=== PATIENT | female | born 1960 | race Caucasian/White ===

== ENCOUNTER 2016-06-24 13:05 | Observation (INO) | payer BC, OTHER ==
[~2016-06-24] VITALS: Ht 152.4 cm; Wt 46.8 kg
[2016-06-24] MEDS ORDERED: NITROGLYCERIN 2% 1 GM OINT PKT TD STA (14:40)
[2016-06-24] MEDS ORDERED: ASPIRIN 325 MG TAB PO STA (14:40)
[2016-06-24] MEDS ORDERED: AMLO5TAB4 PO (14:42)
[2016-06-24] MEDS ORDERED: PROM6.2514 PO (14:44)
--- NOTE | 2016-06-24 15:00 | RADRPT ---
PROCEDURE: XR Chest. CLINICAL INDICATION: Chest pain. TECHNIQUE: Single frontal view. COMPARISON: None. FINDINGS: The lungs are clear. The heart size is normal. There is no pleural effusion. There is no pneumothorax. IMPRESSION: 1. Normal chest radiograph. RPTAT: QQ .Rodney Kirby MD, Date Time Electronically viewed and signed by .Rodney Kirby MD, on 06/24/2016 15:00 .R/
[2016-06-24 15:03] LABS: ADD SCAN DIFF NO
[2016-06-24 15:04] LABS: BASOPHILS % 0.2 % (0.0-2.0); EOSINOPHILS # 0.1 10^3/ul (0.0-0.5); EOSINOPHILS % 0.8 % (0.0-7.0); HEMATOCRIT 46.1 % (37.0-47.0); HEMOGLOBIN 15.2 g/dl (12.0-16.0); LYMPHOCYTES # 1.7 10^3/ul (0.8-2.9); LYMPHOCYTES % 26.8 % (15.0-51.0); MEAN CORPUSCULAR HEMOGLOBIN 29.1 pg (29.0-33.0); MEAN CORPUSCULAR VOLUME 88.1 fl (82.0-101.0); MONOCYTE # 0.3 10^3/ul (0.3-0.9); MONOCYTES % 4.9 % (0.0-11.0); NEUTROPHIL # 4.1 10^3/ul (1.6-7.5); PLATELET COUNT 333 10^3/UL (140-415); RED BLOOD COUNT 5.23 10^6/ul (4.20-5.40); RED CELL DISTRIBUTION WIDTH 11.9 % (11.5-14.5); WHITE BLOOD COUNT 6.2 10^3/ul (4.8-10.8)
--- NOTE | 2016-06-24 15:29 | ERA ---
ER Documentation Chief Complaint Date/Time DATE: 06/24/16 TIME: 15:27 Chief Complaint CP, STARTED THIS AM HPI This is a 55-year-old female with a history of uncontrolled hypertension and a family history of hypertension as well complained of substernal chest pain at the left mid sternum described as pressure and sharp onset about 930 this morning and lasted 2-1/2-3 hours. The pain radiated down the left arm patient was slightly short of breath and felt cold and clammy. She also complained of feeling generalized weakness. At this time the patient has no pain. ROS All systems reviewed and are negative except as per history of present illness. Medications Home Meds Reported Medications Promethazine Hcl* (Promethazine Hcl* Syrup) 6.25 Mg/5 Ml Syrup, 6.25 MG PO Q6H Y for COUGH, ML 06/24/16 Amlodipine Besylate* (Norvasc*) 5 Mg Tablet, 5 MG PO DAILY, TAB 06/24/16 Allergies Allergies: Coded Allergies: Penicillins (Verified Allergy, Unknown, 06/24/16) sulfamethoxazole (Verified Allergy, Unknown, 06/24/16) trimethoprim (Verified Allergy, Unknown, 06/24/16) PMhx/Soc Medical and Surgical Hx: pt denies Surgical Hx History of Surgery: No Hx Cardiac Disorders: Yes (HTN) Hx Alcohol Use: No Hx Substance Use: No Hx Tobacco Use: No Smoking Status: Never smoker FmHx Family History: No coronary disease Physical Exam Vitals Vital Signs Date Time Temp Pulse Resp B/P Pulse Ox O2 Delivery O2 Flow Rate FiO2 06/24/16 13:13 98.1 101 18 194/98 99 Physical Exam Const: Well-developed, well-nourished Head: Atraumatic, normocephalic Eyes: Normal Conjunctiva, PERRLA, EOMI, normal sclera, no nystagmus ENT: Normal External Ears, Nose and Mouth, moist mucus membranes. Neck: Full range of motion. No meningismus, no lymphadenopathy. Resp: Clear to auscultation bilaterally, no wheezing, rhonchi, rales Cardio: Regular rate and rhythm, no murmurs, S1 S2 present Abd: Soft, non tender x 4, non distended. Normal bowel sounds, no guarding or rebound, no pulsitile abdominal masses or bruits Skin: No petechiae or rashes, no ecchymosis , no maculopapular rash Back: No midline or flank tenderness Ext: No cyanosis, or edema, FROM x 4, normal inspection, neurovascularly intact x 4 Neur: Awake and alert, STR 5/5 x 4, sensation intact x 4, no focal findings, cerebellum intact Psych: Normal Mood and Affect Result Diagram: 06/24/16 1450 Results 24 hrs Laboratory Tests Test 06/24/16 14:50 Basophils # 0.010^3/ul Basophils % 0.2% Eosinophils # 0.110^3/ul Eosinophils % 0.8% Hematocrit 46.1% Hemoglobin 15.2g/dl Lymphocytes # 1.710^3/ul Lymphocytes % 26.8% Mean Corpuscular Hemoglobin 29.1pg Mean Corpuscular Hemoglobin Concent 33.0g/dl Mean Corpuscular Volume 88.1fl Mean Platelet Volume 9.0fl Monocytes # 0.310^3/ul Monocytes % 4.9% Neutrophils # 4.110^3/ul Neutrophils % 67.0% Nucleated Red Blood Cells # 0.010^3/ul Nucleated Red Blood Cells % 0.0/100WBC Platelet Count 24580^3/UL Red Blood Count 5.2310^6/ul Red Cell Distribution Width 11.9% White Blood Count 6.210^3/ul Current Medications Medications (Trade) Dose Ordered Sig/Reinaldo Route PRN Reason Start Time Stop Time Status Last Admin Dose Admin Aspirin (Aspirin) 325 mg ONCE STAT PO 06/24/16 14:40 06/24/16 14:43 DC 06/24/16 14:48 Nitroglycerin (Nitroglycerin 2% Oint) 1 inch ONCE STAT TD 06/24/16 14:40 06/24/16 14:43 DC 06/24/16 14:48 Procedures/MDM PROCEDURE: XR Chest. CLINICAL INDICATION: Chest pain. TECHNIQUE: Single frontal view. COMPARISON: None. FINDINGS: The lungs are clear. The heart size is normal. There is no pleural effusion. There is no pneumothorax. IMPRESSION: 1. Normal chest radiograph. RPTAT: QQ .Rodney Kirby MD, MD Date Time Electronically viewed and signed by .Rodney Kirby MD, MD on 06/24/2016 15:00 .R/ CC: JASE JEFF DO EKG: Rate/Rhythm: Normal Sinus Rhythm,NL intervals QRS, ST, QT: NORMAL AL, QRS, QT] Impression: NORMAL EKG Patient's symptoms are concerning for cardiac cause will require inpatient workup and continuous monitoring. Further w/u for ischemia, arrhythmia, PE or dissection will be deferred to the inpatient team. Accepting Care Team: Current data and ongoing care discussed. Time: Time of admission Primary Provider: [XOXOXO] Consulting: [XOXOXO] Outstanding Data: none Departure Diagnosis: Primary Impression: Chest pain Qualified Code: R07.9 - Chest pain, unspecified type Condition: Stable JASE JEFF DO Jun 24, 2016 15:29
[2016-06-24 15:47] LABS: CHLORIDE 100 mmol/L (97-110)
[2016-06-24 15:48] LABS: POTASSIUM 3.8 mmol/L (3.5-5.1); SODIUM 144 mmol/L (135-144)
[2016-06-24 15:50] LABS: ANION GAP 22 (8-16); CARBON DIOXIDE 26 mmol/L (21-31); CREATININE 0.65 mg/dl (0.44-1.00)
[2016-06-24 15:51] LABS: BLOOD UREA NITROGEN 11 mg/dl (7-20); CALCIUM 9.4 mg/dl (8.4-10.2); GLUCOSE 93 mg/dl (70-220)
[2016-06-24] MEDS ORDERED: ONDANSETRON 4 MG INJ IV PRN (16:00)
[2016-06-24] MEDS ORDERED: ACETAMINOPHEN 325 MG TAB PO PRN ×2 (16:00→17:00)
[2016-06-24 16:20] LABS: TROPONIN-I < 0.012 ng/ml (0.00-0.12)
[2016-06-24] MEDS ORDERED: NITROGLYCERIN (SL) 0.4 MG TAB SL PRN (17:00)
[2016-06-24] MEDS ORDERED: morphine 2 MG INJ IV PRN (17:00)
[2016-06-24] MEDS: AL HYDROX/MG HYDROX/SIMETH 30 ML CUP PO SCH ×2 (17:16→21:44)
--- NOTE | 2016-06-24 17:27 | HP ---
DATE OF ADMISSION: 06/24/2016 REASON FOR ADMISSION: Chest pain. HISTORY OF PRESENT ILLNESS: This is a 55-year-old lady with no prior cardiac history. Woke up this m orning with left-sided chest pain, sharp, stabbing in nature with no radiation, did have mild associ ated shortness of breath at that time. She was able to take her children to school; however, pain w as largely persistent until 10:00 a.m. when she presented to the emergency room and pain had resolve d spontaneously. She has no prior cardiac history, recently diagnosed with possible hypertension, s tarted on amlodipine by her primary care physician several days ago. She is a nonsmoker. No family history of cardiac disease. PAST MEDICAL HISTORY: Hypertension. ALLERGIES: PENICILLIN, SULFAMETHOXAZOLE AND BACTRIM. SOCIAL HISTORY: She has 2 children, , is independent in ADLs, nonsmoker, no alcohol, no hist ory of drug use. FAMILY HISTORY: Noncontributory. PHYSICAL EXAMINATION: GENERAL: A well-developed, well-nourished lady, awake, alert, oriented, talking in full an d complete sentences. VITAL SIGNS: Currently afebrile. Pulse is 100, blood pressure initially 190/80, now 140/100, O2 sa turation 96% on room air. NECK: Supple. No JVD or lymphadenopathy. CARDIAC: S1, S2, no added sounds or murmurs. CHEST: Chest clear to auscultation bilaterally. ABDOMEN: Soft, nontender. No guarding or rebound. EXTREMITIES: No cyanosis, clubbing or edema. NEUROLOGIC: Grossly intact. No focal deficits. LABORATORY DATA: White count 6.2, hemoglobin 15.2, platelets of 333, BUN 11, creatinine 0.65. Init ial troponin was negative. EKG shows sinus rhythm, no acute ischemic changes. DIAGNOSTIC DATA: Chest x-ray was reviewed, shows no infiltrates or effusions. IMPRESSION AND PLAN: 1. Chest pain in a pleasant 55-year-old lady unlikely to be cardiac. However, persistent pain for 4 hours. 2. Hypertension and possible anxiety component given elevated blood pressure in the emergency room earlier on admission. PLAN: Cardiology consult Dr. Chua currently to evaluate for cardiology. Patient will need seri al troponins, possible noninvasive stress test if indicated. The patient should follow up with her primary care physician for blood pressure management for evaluation and management of her hypertensi on. Dictated By: JAVI KOENIG/ELIZA Conf#: [id number] DID#: [id number]
--- NOTE | 2016-06-24 18:46 | CONS ---
Date/Time of Note Date/Time of Note DATE: 06/24/16 TIME: 18:38 Assessment/Plan Assessment/Plan Chief Complaint/Hosp Course Chest pain: The patient has atypical symptoms and just recently diagnosed HTN as a risk factor, but she does have inferolateral ST depressions on her presenting EKG which are concerning. As she is currently asymptomatic, will trend one more troponin. If troponin is negative will have stress MPI tomorrow am. If trends up, recurrence of pain, or evolving EKG changes, will anticoagulate and evaluate for cardiac cath. HTN: recently diagnosed. On admission was 194/98 but resolved without meds so unclear if really that high. If it was that high, may explain her chest pain. -ASA, statin, metoprolol -trend trop. See above discussion for decision making -stress MPI in am if trops negative Problems: Consultation Date/Type/Reason Admit Date/Time Date of Consultation: Jun 24, 2016 Type of Consultation: Cardiology Reason for Consultation Chest pain Referring Provider: JAVI WEBSTER MD, [facility] Hx of Present Illness 55 yo F with a recent diagnosis of HTN, who presented with chest pain. She notes that she woke up around 6 am with sharp chest pain radiating to her left arm with numbness of her left hand. She had SOB associated with this. As the pain did not go away, she decided to come in for evaluation. She has never had this occur and she is usually active and without symptoms. She denies a family h /o CAD and she does not smoke or drink. She is currently chest pain free but has a headache (NTG patch in place). per HPI Past Medical History HTN Social History Smoking Status: Never smoker Exam/Review of Systems Vital Signs Vitals Vital Signs Date Time Temp Pulse Resp B/P Pulse Ox O2 Delivery O2 Flow Rate FiO2 06/24/16 17:36 97.4 88 16 134/76 100 Room Air Exam Constitutional: alert, oriented Psych: no complaints Head: atraumatic, normocephalic Eyes: nl conjunctiva ENMT: nl external ears & nose Neck: No jvd Respiratory: clear to auscultation, No crackles/rales Cardiovascular: regular rate and rhythm, No edema, No systolic murmur Gastrointestinal: soft Musculoskeletal: nl extremities to inspection Extremities: normal pulses Neurological: nl mental status, nl speech Skin: No rash or lesions Results EKG: sinus tachycardia, inferior and lateral [address] depression (unclear if new or old) Result Diagram: 06/24/16 1450 06/24/16 1450 Results 24 hrs Laboratory Tests Test 06/24/16 14:50 Anion Gap 22 H Basophils # 0.0 Basophils % 0.2 Blood Urea Nitrogen 11 Calcium Level 9.4 Carbon Dioxide Level 26 Chloride Level 100 Creatinine 0.65 Eosinophils # 0.1 Eosinophils % 0.8 Glucose Level 93 Hematocrit 46.1 Hemoglobin 15.2 Lymphocytes # 1.7 Lymphocytes % 26.8 Mean Corpuscular Hemoglobin 29.1 Mean Corpuscular Hemoglobin Concent 33.0 Mean Corpuscular Volume 88.1 Mean Platelet Volume 9.0 Monocytes # 0.3 Monocytes % 4.9 Neutrophils # 4.1 Neutrophils % 67.0 Nucleated Red Blood Cells # 0.0 Nucleated Red Blood Cells % 0.0 Platelet Count 333 Potassium Level 3.8 Red Blood Count 5.23 Red Cell Distribution Width 11.9 Sodium Level 144 Troponin I < 0.012 White Blood Count 6.2 Medications Medications Current Medications Al Hydrox/Mg Hydrox/Simethicone (Mag-Al Plus) 30 ml QID PO Last administered on 06/24/16t 17:16; Admin Dose 30 ML; Start 06/24/16 at 17:00 Enoxaparin Sodium (Lovenox) 55 mg Q12 SC ; Start 06/24/16 at 21:00 Aspirin (Aspirin) 81 mg DAILY PO ; Start 06/26/16 at 09:00 Metoprolol Tartrate (Lopressor) 12.5 mg BID PO ; Start 06/24/16 at 21:00 Nitroglycerin (Nitroglycerin (Sl Tab) 0.4 Mg) 1 tab Q5M PRN SL CHEST PAIN; Start 06/24/16 at 17:00 Morphine Sulfate (morphine) 2 mg Q2H PRN IV PAIN LEVEL 4-6; Start 06/24/16 at 17:00 Acetaminophen (Tylenol Tab) 325 mg Q6H PRN PO PAIN AND OR ELEVATED TEMP; Start 06/24/16 at 17:00 CAMILO CHILDS Jun 24, 2016 18:46
[2016-06-24] MEDS ORDERED: METOPROLOL 25 MG TAB PO SCH (21:00)
[2016-06-24] MEDS: ENOXAPARIN 60 MG/0.6 ML SYG SC SCH (21:47)
[2016-06-24 22:37] VITALS: TEMP 98.5
[2016-06-24 23:45] VITALS: BP 175/108; PULSE 73; RESP 18
[2016-06-25] VITALS (10 sets, daily range): BP systolic 100–142; BP diastolic 60–90; PULSE 59–77; RESP 18–20; Ht 152.4 cm; Wt 46.8 kg
[2016-06-25] MEDS: METOPROLOL 25 MG TAB PO SCH ×2 (00:16→10:48)
[2016-06-25] MEDS ORDERED: NITROGLYCERIN 2% 1 GM OINT PKT TD SCH (00:30)
[2016-06-25] MEDS ORDERED: ENALAPRILAT 1.25 MG INJ IV PRN (00:30)
[2016-06-25] MEDS ORDERED: REGADENOSON 0.4 MG/5 ML SYG ONE (09:14)
--- NOTE | 2016-06-25 10:07 | RADRPT ---
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 Physician: JAVI WEBSTER Quality: Technically Difficult Study Procedures: Transthoracic echocardiogram with complete 2D, M-Mode, and doppler examination. Indications: Chest Pain. 2D/M Mode Doppler Measurement Value Normal Ranges Measurement Value Normal Ranges LVIDd 2D 3.4 3.5 - 5.6 cm AV Peak Desmond 1.1 m/sec LVIDs 2D 2.5 2.1 - 4.1 cm AV Peak PG 5.0 mmHg FS 2D 28.6 % LVOT Peak Desmond 0.8 m/sec LVPWd 2D 1.3 0.6 - 1.1 cm LVOT Peak PG 3.0 mmHg IVSd 2D 1.3 0.6 - 1.1 cm MV E Peak Desmond 0.7 m/sec IVS/LVPW 2D 1.0 MV A Peak Desmond 0.7 m/sec AoR Diam 2D 2.1 2.0 - 3.7 cm MV E/A 0.9 LA/Ao 2D 1 0 - 1 MV Decel Time 218 msec EDV 2D 40.4 cm3 MV E/A 0.9 ESV 2D 14.7 cm3 LA Dimen 2D 2.8 2.3 - 4.0 cm Findings Left Ventricle: Normal left ventricular systolic function. Normal left ventricular cavity size. Mild concentric left ventricular hypertrophy. Ejection fraction is visually estimated at 60 %. Tissue Doppler/Mitral Doppler indices are within normal limits. Right Ventricle: Normal right ventricular size. Normal right ventricular systolic function. Left Atrium: The left atrium is normal in size. Right Atrium: The right atrium is normal in size. Mitral Valve: Mild mitral annular calcification. Trace mitral regurgitation. Aortic Valve: Aortic valve not well visualized. Trace aortic valve regurgitation. Tricuspid Valve: Tricuspid valve not well visualized. Unable to obtain RVSP due to minimal presence of tricuspid regurgitation. There is trace tricuspid regurgitation. Pulmonic Valve: Pulmonic valve not well visualized. There is trace pulmonic regurgitation. Pericardium: Normal pericardium with no significant pericardial effusion. Aorta: Normal aortic root. IVC: Normal size and normal respiratory collapse consistent with normal right atrial pressure. Conclusions 1.Technically difficult study with poor acoustic windows. 2.Normal left ventricular systolic function. Normal left ventricular cavity size. Mild concentric left ventricular hypertrophy. Ejection fraction is visually estimated at 60 %. Tissue Doppler/Mitral Doppler indices are within normal limits. 3.No significant valvular stenosis or regurgitation seen. 4.Unable to obtain RVSP due to minimal presence of tricuspid regurgitation. RA pressure is 3 mmHg. Electronically Signed By: Eliseo Worley 25-Jun-2016 10:07:37 -0800 Patient Name: DARLENE DESIR Study Date: 25-Jun-2016 [id number]
--- NOTE | 2016-06-25 10:39 | OPR ---
Date/Time of Note Date/Time of Note DATE: 06/25/16 TIME: 10:38 Operative Report Free Text/Dictation Nuclear medicine myocardial perfusion imaging: Date: 06/25/2016 Indication: Chest pain After informed consent, the patient was given IV Lexiscan. Pt was monitored for a total of 8 minutes post-infusion without any sings of arrhythmias. Patient had nausea and SOB but no chest pain or significant EKG changes. Please refer to separate note for imaging results. CAMILO CHILDS Jun 25, 2016 10:39
--- NOTE | 2016-06-25 10:40 | CONS ---
Date/Time of Note Date/Time of Note DATE: 06/25/16 TIME: 10:39 Assessment/Plan Assessment/Plan Chief Complaint/Hosp Course Chest pain: The patient has atypical symptoms and just recently diagnosed HTN as a risk factor, but she does have inferolateral ST depressions on her presenting EKG which are concerning. As she is currently asymptomatic. Trops negative and echo normal. Await MPI results HTN: recently diagnosed. On admission was 194/98 but resolved without meds so unclear if really that high. If it was that high, may explain her chest pain. -ASA, statin, metoprolol -d/c if stress MPI normal Problems: Consultation Date/Type/Reason Admit Date/Time Jun 24, 2016 at 15:46 Initial Consult Date 06/24/16 Type of Consultation: Cardiology Referring Provider: JAVI WEBSTER MD, [facility] 24 HR Interval Summary Free Text/Dictation No o/n events. No chest pain. Exam/Review of Systems Vital Signs Vitals Vital Signs Date Time Temp Pulse Resp B/P Pulse Ox O2 Delivery O2 Flow Rate FiO2 06/25/16 08:52 68 06/25/16 07:59 98.5 18 140/88 98 Room Air Intake and Output 06/24/16 06/24/16 06/25/16 15:00 23:00 07:00 Intake Total 240 ml Balance 240 ml Exam Constitutional: alert, oriented Psych: no complaints Neck: No jvd Respiratory: clear to auscultation Cardiovascular: regular rate and rhythm, No edema Gastrointestinal: non-tender, soft Musculoskeletal: nl extremities to inspection Extremities: normal pulses Neurological: nl mental status, nl speech Results Result Diagram: 06/24/16 1450 06/24/16 1450 Results 24 hrs Laboratory Tests Test 06/24/16 14:50 06/24/16 18:05 06/24/16 22:28 06/25/16 00:25 Anion Gap 22 H Basophils # 0.0 Basophils % 0.2 Blood Urea Nitrogen 11 Calcium Level 9.4 Carbon Dioxide Level 26 Chloride Level 100 Creatinine 0.65 Eosinophils # 0.1 Eosinophils % 0.8 Glucose Level 93 Hematocrit 46.1 Hemoglobin 15.2 Lymphocytes # 1.7 Lymphocytes % 26.8 Mean Corpuscular Hemoglobin 29.1 Mean Corpuscular Hemoglobin Concent 33.0 Mean Corpuscular Volume 88.1 Mean Platelet Volume 9.0 Monocytes # 0.3 Monocytes % 4.9 Neutrophils # 4.1 Neutrophils % 67.0 Nucleated Red Blood Cells # 0.0 Nucleated Red Blood Cells % 0.0 Platelet Count 333 Potassium Level 3.8 Red Blood Count 5.23 Red Cell Distribution Width 11.9 Sodium Level 144 Troponin I < 0.012 < 0.012 0.020 0.016 White Blood Count 6.2 Medications Medications Current Medications Al Hydrox/Mg Hydrox/Simethicone (Mag-Al Plus) 30 ml QID PO Last administered on 06/24/16 21:44; Admin Dose 30 ML; Start 06/24/16 at 17:00 Enoxaparin Sodium (Lovenox) 55 mg Q12 SC Last administered on 06/24/16 21:47; Admin Dose 55 MG; Start 06/24/16 at 21:00 Aspirin (Aspirin) 81 mg DAILY PO ; Start 06/26/16 at 09:00 Nitroglycerin (Nitroglycerin (Sl Tab) 0.4 Mg) 1 tab Q5M PRN SL CHEST PAIN; Start 06/24/16 at 17:00 Morphine Sulfate (morphine) 2 mg Q2H PRN IV PAIN LEVEL 4-6; Start 06/24/16 at 17:00 Acetaminophen (Tylenol Tab) 325 mg Q6H PRN PO PAIN AND OR ELEVATED TEMP; Start 06/24/16 at 17:00 Metoprolol Tartrate (Lopressor) 25 mg BID PO Last administered on 06/25/16 00: 16; Admin Dose 25 MG; Start 06/25/16 at 00:30 Enalaprilat (Vasotec Iv) 1.25 mg Q6H PRN IV systolic BP >140; Start 06/25/16 at 00:30 CAMILO CHILDS Jun 25, 2016 10:40
[2016-06-25] MEDS: AL HYDROX/MG HYDROX/SIMETH 30 ML CUP PO SCH ×2 (10:46→13:26)
--- NOTE | 2016-06-25 10:49 | RADRPT ---
PROCEDURE: Nuclear medicine myocardial perfusion scan CLINICAL INDICATION: Chest pain TECHNIQUE: 30.0 mCi of technetium 99m Cardiolite was administered for the stress study. 10.0 mCi of technetium 99m Cardiolite was administered for the resting study. The patient was stressed with 0 .4 mg of Lexiscan. Images were reviewed in the short axis, vertical long axis, and horizontal long axis views. Wall motion was assessed and ejection fraction was calculated as well. Images were revi ewed on a high-resolution PACS workstation. COMPARISON: None available FINDINGS: Left ventricular size is within normal limits. There is moderate soft tissue and bowel attenuation artifact. The stress tomographic images demonstrate a normal pattern of perfusion. The resting yazmin ographic images demonstrate a similar pattern. There is no evidence for reversible ischemia. Wall motion is normal. The ejection fraction is calculated at 62%. IMPRESSION: 1. Negative myocardial perfusion scan. 2. There is no evidence for reversible ischemia. 3. Normal wall motion with normal ejection fraction of 62%. RPTAT: HMJB .Zack Alexandre MD, MD Date Time Electronically viewed and signed by .Zack Alexandre MD, MD on 06/25/2016 10:49 .B/
[2016-06-25] MEDS: ENOXAPARIN 60 MG/0.6 ML SYG SC SCH (10:59)
[2016-06-25] MEDS ORDERED: ASPI81TA3 PO (12:40)
--- NOTE | 2016-06-25 12:40 | PDOCDIS ---
Discharge Instructions DIAGNOSIS Discharge Diagnosis: Noncardiac chest pain; hypertension CONDITION Patient Condition: Good HOME CARE INSTRUCTIONS: Diet Instructions: RegularSpecial Diet: npo ACTIVITY: Activity Restrictions: No Restrictions Do not operate Power Tool FOLLOW UP/APPOINTMENTS Appointments Follow-up with primary care physician in 2 weeks BEATRIS FRANZ MD Jun 25, 2016 12:40
--- NOTE | 2016-06-25 12:42 | DS ---
Date/Time of Note Date/Time of Note DATE: 06/25/16 TIME: 12:41 Discharge Summary Admission/Discharge Info Admit Date/Time Jun 24, 2016 at 15:46 Discharge Date/Time 06/25/2016 Final Diagnosis Noncardiac chest pain; essential hypertension Patient Condition: Good Consults Cardiology Procedures Lexiscan Hx of Present Illness This is a 55-year-old lady with no prior cardiac history. Woke up this morning with left-sided chest pain, sharp, stabbing in nature with no radiation, did have mild associated shortness of breath at that time. She was able to take her children to school; however, pain was largely persistent until 10:00 a.m. when she presented to the emergency room and pain had resolved spontaneously. She has no prior cardiac history, recently diagnosed with possible hypertension , started on amlodipine by her primary care physician several days ago. She is a nonsmoker. No family history of cardiac disease. Hospital Course Chest pain: The patient has atypical symptoms and just recently diagnosed HTN as a risk factor, but she does have inferolateral ST depressions on her presenting EKG which are concerning. As she is currently asymptomatic. Trops negative and echo normal. Await MPI results HTN: recently diagnosed. On admission was 194/98 but resolved without meds so unclear if really that high. If it was that high, may explain her chest pain. -ASA, statin, metoprolol -d/c if stress MPI normal Charming 55-year-old woman. She has had a Lexiscan test that was fully normal. She is now stable for discharge. She has excellent rehabilitation potential she is competent for medical decisions she has no known communicable diseases she is not a hazard to herself or others. Home Meds Reported Medications Promethazine Hcl* (Promethazine Hcl* Syrup) 6.25 Mg/5 Ml Syrup, 6.25 MG PO Q6H Y for COUGH, ML 06/24/16 Amlodipine Besylate* (Norvasc*) 5 Mg Tablet, 5 MG PO DAILY, TAB 06/24/16 Pending Labs Laboratory Tests Test 06/24/16 14:50 06/24/16 18:05 06/24/16 22:28 06/25/16 00:25 Anion Gap 22 (8-16) Basophils # 0.010^3/ul (0.0-0.1) Basophils % 0.2% (0.0-2.0) Blood Urea Nitrogen 11mg/dl (7-20) Calcium Level 9.4mg/dl (8.4-10.2) Carbon Dioxide Level 26mmol/L (21-31) Chloride Level 100mmol/L (97-110) Creatinine 0.65mg/dl (0.44-1.00) Eosinophils # 0.110^3/ul (0.0-0.5) Eosinophils % 0.8% (0.0-7.0) Glucose Level 93mg/dl (70-220) Hematocrit 46.1% (37.0-47.0) Hemoglobin 15.2g/dl (12.0-16.0) Lymphocytes # 1.710^3/ul (0.8-2.9) Lymphocytes % 26.8% (15.0-51.0) Mean Corpuscular Hemoglobin 29.1pg (29.0-33.0) Mean Corpuscular Hemoglobin Concent 33.0g/dl (32.0-37.0) Mean Corpuscular Volume 88.1fl (82.0-101.0) Mean Platelet Volume 9.0fl (7.4-10.4) Monocytes # 0.310^3/ul (0.3-0.9) Monocytes % 4.9% (0.0-11.0) Neutrophils # 4.110^3/ul (1.6-7.5) Neutrophils % 67.0% (39.0-77.0) Nucleated Red Blood Cells # 0.010^3/ul (0.0-0.0) Nucleated Red Blood Cells % 0.0/100WBC (0.0-0.0) Platelet Count 81791^3/UL (140-415) Potassium Level 3.8mmol/L (3.5-5.1) Red Blood Count 5.2310^6/ul (4.20-5.40) Red Cell Distribution Width 11.9% (11.5-14.5) Sodium Level 144mmol/L (135-144) Troponin I < 0.012ng/ml (0.00-0.12) < 0.012ng/ml (0.00-0.12) 0.020ng/ml (0.00-0.12) 0.016ng/ml (0.00-0.12) White Blood Count 6.210^3/ul (4.8-10.8) BEATRIS FRANZ MD Jun 25, 2016 12:42
[2016-06-26] MEDS ORDERED: ASPIRIN 81 MG TAB PO SCH (09:00)
== END 2016-06-25 15:55 | disposition home or self-care (01) ==
LOC: E/R 13:05 → TEL 15:46
PROVIDERS: ADMIT Internal Medicine Pulmonary Disease; ATTEND Internal Medicine Pulmonary Disease
DX: R07.9 Chest pain, unspecified (principal); I10 Essential (primary) hypertension
CPT/HCPCS: 71010; 78452; 80048; 84484; 85025; 93005; 93017; 93306; 96372; A9500; A9505; J1650; J2785; Z7500; Z7610; G0378

== ENCOUNTER 2018-05-08 14:40 | Emergency (ER) | payer BC, OTHER ==
[~2018-05-08] VITALS: Ht 144.8 cm; Wt 48.0 kg
[~2018-05-08 14:40] MED LIST: AMLO5TAB4 PO; ASPI-831 PO; PROM6.2515 PO
[2018-05-08 14:47] VITALS: Ht 144.8 cm; Wt 48.0 kg
[2018-05-08] MEDS ORDERED: ONDANSETRON 4 MG INJ IV STA (17:40)
[2018-05-08] MEDS ORDERED: SOD CHLORIDE 0.9% 1,000 ML IV STA (17:40)
[2018-05-08] MEDS ORDERED: HYDROmorphONE 1 MG/ML SYG IV STA (17:40)
[2018-05-08] MEDS ORDERED: hydrALAzine 20 MG INJ IV ONE (18:00)
[2018-05-08] MEDS ORDERED: LOSA100T15 PO (18:24)
[2018-05-08] MEDS ORDERED: HYDR25TA6 PO (18:25)
[2018-05-08] MEDS ORDERED: KETOROLAC 30 MG INJ IV STA (19:29)
[2018-05-08] MEDS ORDERED: IBUP-1561 PO (19:40)
--- NOTE | 2018-05-08 19:52 | ERD ---
ER Documentation Chief Complaint Chief Complaint FLL LAST WEEK WITH PIEDRA/NECK/SHOULDER PAIN HPI This is a 57-year-old female with a known history of hypertension. The patient indicates that 1 week prior to arrival she had a mechanical slip and fall in the rain. She had gotten out of her car and fell backwards and hit her head onto the cement. She stated there is no loss of consciousness. Since that time she has been complaining of a severe posterior headache. She also complains of shoulder pain and contrary to the triage note she denies any neck pain. She states the pain is located on the back of both of her shoulders but she is able to move her arms, however this does exacerbate her pain. She has no numbness or tingling of her upper or lower extremities. She is right-handed dominant denies any weakness of her upper extremities. The patient states that the headache is persistent. There is no alleviating or exacerbating factors. He has no changes in vision. She feels nauseous but has not experienced any emesis. She went to her primary care physician today for further evaluation. Her blood pressure was elevated with a systolic of greater than 200. She stated she had not taken her antihypertensive medication for the past several days. She denies any chest pain. She denies any abdominal pain. She was told to immediately come to the emergency department to be further evaluated. ROS All systems reviewed and are negative except as per history of present illness. Medications Home Meds Active Scripts Ibuprofen* (Motrin*) 400 Mg Tab, 400 MG PO Q6H PRN for PAIN AND OR ELEVATED TEMP, #30 TAB Prov:MELISSA FERNANDEZ MD 05/08/18 Reported Medications Hydrochlorothiazide* (Hydrochlorothiazide*) 25 Mg Tab, 25 MG PO QAM, #30 TAB 05/08/18 Losartan Potassium* (Losartan Potassium*) 100 Mg Tablet, 100 MG PO QAM, TAB 05/08/18 Discontinued Reported Medications Promethazine Hcl* (Promethazine Hcl* Syrup) 6.25 Mg/5 Ml Syrup, 6.25 MG PO Q6H PRN for COUGH, ML 06/24/16 Amlodipine Besylate* (Norvasc*) 5 Mg Tablet, 5 MG PO DAILY, TAB 06/24/16 Discontinued Scripts Aspirin (Aspirin) 81 Mg Chew, 81 MG PO DAILY for 30 Days, TAB Prov:BEATRIS FRANZ MD 06/25/16 Allergies Allergies: Coded Allergies: Penicillins (Verified Allergy, Unknown, 05/08/18) sulfamethoxazole (Verified Allergy, Unknown, 05/08/18) trimethoprim (Verified Allergy, Unknown, 05/08/18) PMhx/Soc History of Surgery: Yes (right arm rotator cuff surgery, tubal ligation) Anesthesia Reaction: No Hx Neurological Disorder: No Hx Respiratory Disorders: No Hx Cardiac Disorders: No (HYPERTENSION) Hx Psychiatric Problems: No Hx Miscellaneous Medical Probl: No Hx Alcohol Use: No Hx Substance Use: No Hx Tobacco Use: No Smoking Status: Never smoker Physical Exam Vitals Vital Signs Date Temp Pulse Resp B/P (MAP) Pulse Ox O2 O2 Flow FiO2 Time Delivery Rate 05/08/18 18 145/81 99 Room Air 18:23 (102) 05/08/18 18 226/123 99 Room Air 17:50 (157) 05/08/18 220/114 15:27 (149) 05/08/18 97.8 90 18 218/112 99 14:47 (147) Physical Exam Constitutional:Well-developed. Well-nourished. HEENT:Normocephalic. Atraumatic.Pupils were equal round reactive to light. Moist mucous membranes.No tonsillar exudates. No nasal septal hematoma. No hemotympanum. No scalp hematoma. Neck: No nuchal rigidity. No lymphadenopathy. No posterior cervical spine tenderness or step-offs. Respiratory: Not using accessory muscles of respiration.Lungs were clear to auscultation bilaterally. No rhonchi. No rales. No wheezing. Cardiovascular: Regular rate regular rhythm.No murmurs. No rubs were appreciated.S1, S2 normal. Distal pulses are palpable 2+ bilaterally. GI: Abdomen was soft. Nontender. Non Distended. No pulsatile abdominal masses or bruits. No rebound. No guarding. Bowel sounds were present and normal. Muscle skeletal: Full range of motion of both the upper and lower extremities bilaterally.Normal muscle tone.No assymetrical calf tenderness or swelling. Normal light of both humeral heads. No reproducible tenderness over the bilateral upper extremities. Patient was able to abduct both upper extremities past 90 degrees without any difficult he appear Skin: No petechia, no purpura. No lesions on the palms or the soles of the feet. No maculopapular rash. NEURO: Patient was alert, awake, orientated x3.No facial droop. Gait observed and normal with no ataxia.Speech had regular rate and rhythm. No focal n eurological deficits. Result Diagram: 05/08/18174105/08/181741 Results 24 hrs Laboratory Tests Test 05/08/18 17:42 White Blood Count 6.3 10^3/ul Red Blood Count 4.87 10^6/ul Hemoglobin 14.7 g/dl Hematocrit 43.6 % Mean Corpuscular Volume 89.5 fl Mean Corpuscular Hemoglobin 30.2 pg Mean Corpuscular Hemoglobin Concent 33.7 g/dl Red Cell Distribution Width 12.1 % Platelet Count 349 10^3/UL Mean Platelet Volume 8.7 fl Immature Granulocytes % 0.200 % Neutrophils % 60.9 % Lymphocytes % 33.4 % Monocytes % 5.0 % Eosinophils % 0.3 % Basophils % 0.2 % Nucleated Red Blood Cells % 0.0 /100WBC Immature Granulocytes # 0.010 10^3/ul Neutrophils # 3.9 10^3/ul Lymphocytes # 2.1 10^3/ul Monocytes # 0.3 10^3/ul Eosinophils # 0.0 10^3/ul Basophils # 0.0 10^3/ul Nucleated Red Blood Cells # 0.0 10^3/ul Prothrombin Time 12.3 Sec Prothrombin Time Ratio 1.0 INR International Normalized Ratio 0.90 Activated Partial Thromboplast Time 31.1 Sec Sodium Level 142 mmol/L Potassium Level 3.5 mmol/L Chloride Level 102 mmol/L Carbon Dioxide Level 27 mmol/L Anion Gap 13 Blood Urea Nitrogen 12 mg/dl Creatinine 0.65 mg/dl Est Glomerular Filtrat Rate mL/min > 60 mL/min Glucose Level 96 mg/dl Calcium Level 10.1 mg/dl Total Bilirubin 0.1 mg/dl Direct Bilirubin 0.00 mg/dl Indirect Bilirubin 0.1 mg/dl Aspartate Amino Transf (AST/SGOT) 27 IU/L Alanine Aminotransferase (ALT/SGPT) 19 IU/L Alkaline Phosphatase 88 IU/L Troponin I < 0.012 ng/ml Total Protein 9.1 g/dl Albumin 5.4 g/dl Globulin 3.70 g/dl Albumin/Globulin Ratio 1.45 Amylase Level 117 U/L Lipase 63 U/L Current Medications Medications Dose Sig/Reinaldo Start Time Status Last (Trade) Ordered Route PRN Stop Time Admin Dose Reason Admin Sodium 1,000 ml @ Q1H STAT 05/08/18 DC 05/08/18 Chloride 1,000 mls/hr IV 17:40 17:51 05/08/18 18:39 Ondansetron 4 mg ONCE STAT 05/08/18 DC 05/08/18 HCl (Zofran IV 17:40 17:52 Inj) 05/08/18 17:43 1 mg ONCE STAT 05/08/18 DC 05/08/18 Hydromorphone IV 17:40 17:53 HCl 05/08/18 17:43 (Dilaudid) Hydralazine 20 mg ONCE ONCE 05/08/18 DC 05/08/18 HCl IV 18:00 17:52 (Apresoline) 05/08/18 18:01 Ketorolac 30 mg ONCE STAT 05/08/18 DC Tromethamine IV 19:29 (Toradol) 05/08/18 19:31 Procedures/MDM This patient presented to the emergency department with severely elevated blood pressure after blunt head trauma. Utilizing the Nexus criteria did not feel is necessary to obtain any radiographic imaging of the cervical spine. My differential diagnosis included but was not limited to conditions that could end-organ damage such as acute coronary syndrome, acute pulmonary edema, aortic dissection, subarachnoid hemorrhage, intracerebral hemorrhage, cerebral infarction, withdrawal syndromes from beta blockers, or states of catecholamine excess such as pheochromocytoma or drug intoxication. Ancillary lab work was obtained. There was no elevation in the BUN and creatinine to suggest acute renal failure. Electrolytes were normal. Cardiac enzyme was normal and the 12 lead EKG showed no acute ischemic changes or left ventricular hypertrophy. 12 Lead EKG tracing ordered and reviewed by myself showed: Normal sinus rhythm of 82 bpm and no arrhythmia. [place] interval normal. QRS duration normal. No ST segment elevation No ST segment depression. No changes consistent with acute ischemia. I obtained a CT scan of the patient's and there was no signs of intracerebral hemorrhage mass-effect or midline shift. I do feel her symptoms are likely result of a concussion. Given that the patient had an absence of cerebral, ocular, cardiac or renal damage the hypertensive urgency was treated with IV agents in the emergency room with improvement of the patient's blood pressure. The patient likely appeared to be complaint with primary care physician and will follow up with their PCP in the next 24-48 hours. They were instructed to return to the emergency department at anytime if there is any worsening of their condition such as development of chest pain or a headache. They were instructed to resume previous medication regimen or initiate a suitable medication regimen under care of the PCP to enable proper monitoring for drug reactions. The patient was also informed on the adverse side effects and adverse drug interactions of the medications prescribed to them by myself. The patient gave informed consent to the prescription of the new medication. Critical Care: Time: 35 minutes Treatments/Evaluations: Close monitoring and treatment of unstable vital signs, cardiorespiratory, and neurologic status, while maintaining tight balance of fluid, respiratory, and cardiac interventions. Time does not include performing any of the above billable procedures. Departure Diagnosis: Primary Impression: Concussion Encounter type: initial encounter Loss of consciousness presence/duration: without LOC Qualified Codes: S06.0X0A - Concussion without loss of consciousness, initial encounter Additional Impression: Hypertensive urgency Condition: Fair Patient Instructions: Concussion, Hypertension, Established, Out Of Control Referrals: DELMA DIOP (PCP) MELISSA FERNANDEZ MD May 08, 2018 19:52
[2018-05-08 20:00] VITALS: BP 135/94; PULSE 87; RESP 14
== END 2018-05-08 20:00 | disposition home or self-care (01) ==
LOC: E/R 14:40
DX: S06.0X0A Concussion without loss of consciousness, initial encounter (principal); R40.2142 Coma scale, eyes open, spontaneous, at arrival to emergency department; R40.2362 Coma scale, best motor response, obeys commands, at arrival to emergency department; R40.2252 Coma scale, best verbal response, oriented, at arrival to emergency department; I16.0 Hypertensive urgency; I10 Essential (primary) hypertension; W01.198A Fall on same level from slipping, tripping and stumbling with subsequent striking against other object, initial encounter; Y92.9 Unspecified place or not applicable; Z79.82 Long term (current) use of aspirin
CPT/HCPCS: 36415; 70450; 80053; 82150; 83690; 84484; 85025; 85610; 85730; 93005; 96374; 96375; 99291; J0360; J1170; J1885; J2405; J7030

== ENCOUNTER 2018-12-16 14:57 | Emergency (ER) | payer OTHER ==
[~2018-12-16] VITALS: Ht 157.5 cm; Wt 56.0 kg
[~2018-12-16 14:57] MED LIST changes: -AMLO5TAB4 PO; -ASPI-831 PO; +HYDR25TA6 PO; +IBUP-1561 PO; +LORA-441 PO; +LOSA100T15 PO; +NAPR-985 PO; -PROM6.2515 PO
[2018-12-16 15:00] VITALS: Ht 157.5 cm; Wt 56.0 kg
[2018-12-16] MEDS ORDERED: SOD CHLORIDE 0.9% 500 ML IV STA (17:12)
[2018-12-16] MEDS ORDERED: LORAZEPAM 2 MG INJ IV ONE (17:30)
[2018-12-16 19:25] VITALS: BP 103/72; PULSE 87; RESP 16
== END 2018-12-16 19:45 | disposition home or self-care (01) ==
LOC: E/R 14:57
DX: M48.02 Spinal stenosis, cervical region (principal); I10 Essential (primary) hypertension; R63.0 Anorexia; G47.00 Insomnia, unspecified; F41.1 Generalized anxiety disorder; R40.2142 Coma scale, eyes open, spontaneous, at arrival to emergency department; R40.2362 Coma scale, best motor response, obeys commands, at arrival to emergency department; R40.2252 Coma scale, best verbal response, oriented, at arrival to emergency department
CPT/HCPCS: 72125; 80048; 84484; 85025; 93005; 96361; 96374; 99285; J2060; J7040